=== PATIENT | male | born 1995 | race Caucasian/White ===

== ENCOUNTER 2021-06-21 13:08 | Outpatient (CLI) | payer SELFPAY ==
[2021-06-22 11:50] LABS: SARS-CoV-2 PCR by NAA Not Detected (NotDetected)
== END 2021-06-21 13:09 | disposition home or self-care (01) ==
LOC: LABBT 13:08
PROVIDERS: ATTEND Dentist Oral and Maxillofacial Surgery
DX: Z01.812 Encounter for preprocedural laboratory examination (principal); Z20.822 Contact with and (suspected) exposure to COVID-19
CPT/HCPCS: U0003; U0005

== ENCOUNTER 2021-06-23 05:07 | Day surgery (SDC) | payer SELFPAY ==
[2021-06-23] MEDS ORDERED: Clindamycin/D5W 900 mg/50 ml Premix Bag ONE (06:12)
[2021-06-23] MEDS ORDERED: Bupivacaine 0.25% HCL 30 ML VIAL ONE (06:46)
[2021-06-23] MEDS ORDERED: Hydrocortisone 1% Cream 30 GM TUBE ONE (06:46)
[2021-06-23] MEDS ORDERED: Lidocaine 1% w/Epinephrine 1:100K 20 ML VIAL ONE ×2 (06:46→10:26)
[2021-06-23] MEDS ORDERED: Chlorhexidine Gluconate 15 ML UDCUP SSP ONE (06:46)
[2021-06-23] MEDS ORDERED: EPINEPHrine 1 MG/ML AMP ONE (06:46)
[2021-06-23] MEDS ORDERED: Fentanyl 100 MCG/2 ML VIAL ONE ×2 (06:47→07:31)
[2021-06-23] MEDS ORDERED: AFRIN NASAL MIST 15 ML BOT ONE (07:21)
[2021-06-23] MEDS ORDERED: Midazolam HCl 2 mg/2 ml Vial ONE (07:27)
[2021-06-23] MEDS ORDERED: EPINEPHrine 1 MG/10 ML Abboject SYRINGE ONE (07:38)
[2021-06-23] MEDS ORDERED: Lidocaine 1% PF 5 ML VIAL ONE (07:38)
[2021-06-23] MEDS ORDERED: PROPOFOL 200 MG/20 ML VIAL ONE (07:38)
[2021-06-23] MEDS ORDERED: Ondansetron PF 4 MG/2 ML Vial ONE (07:38)
[2021-06-23] MEDS ORDERED: Rocuronium Bromide 10 MG/ML (10ML VIAL) ONE (07:38)
[2021-06-23] MEDS ORDERED: Dexamethasone 20 MG/5 ML VIAL ONE (07:38)
[2021-06-23] MEDS ORDERED: Albuterol Sulfate HFA (OR ONLY) ONE (08:00)
[2021-06-23] MEDS ORDERED: SUGAMMADEX SODIUM 200 MG/2 ML VIAL ONE (08:26)
[2021-06-23] MEDS ORDERED: Meperidine HCl/PF 25 MG/ML VIAL ONE (10:30)
[2021-06-23] MEDS ORDERED: Ketorolac Tromethamine 30 MG/ML VIAL ONE (10:36)
== END 2021-06-23 12:15 | disposition home or self-care (01) ==
LOC: ERS 05:07 → SDC 06:19
PROVIDERS: ATTEND Dentist Oral and Maxillofacial Surgery
PROC: 0CDXXZ0 Extraction of Lower Tooth, Single, External Approach (ICD-10-PCS; principal; 2021-06-23)
PROC: 0NST04Z Reposition Right Mandible with Internal Fixation Device, Open Approach (ICD-10-PCS; principal; 2021-06-23)
DX: S02.651A Fracture of angle of right mandible, initial encounter for closed fracture (principal); K02.9 Dental caries, unspecified; F17.200 Nicotine dependence, unspecified, uncomplicated
CPT/HCPCS: 96374; C1713; J0171; J1100; J1885; J2175; J2250; J2405; J2704; J3010; J3490; S0020